=== PATIENT | male | born 1965 | race Two or more races ===

== ENCOUNTER 2018-10-22 20:34 | Emergency (ER) | payer OTHER ==
[~2018-10-22] VITALS: Ht 182.9 cm; Wt 108.9 kg
[2018-10-22] MEDS ORDERED: LIDOCAINE 1% INJ 50 ML MDV IJ ONE ×2 (21:21→21:30)
--- NOTE | 2018-10-22 21:21 | NUR ---
PT BIBSELF COMPLAINING OF MULTIPLE LACERATIONS ON LEFT LOWER EXTREMITY. PT TRIPPED AND FELL ON GLASS TABLE. PT ABLE TO CATCH HIMSELF WHEN HE FELL. DENIES LOC, HEADACHE, DIZZINESS, CHANGE IN VISION. BLEEDING HAS STOPPED. PT UP TO DATE ON TETANUS. WILL CONTINUE TO MONITOR
[2018-10-23 00:20] VITALS: BP 127/84
--- NOTE | 2018-10-23 00:20 | NUR ---
Patient discharged to home in stable condition. Written and verbal after care instructions given. Patient verbalizes understanding of instruction. Pt ambulatory with a steady gait
== END 2018-10-23 00:21 | disposition home or self-care (01) ==
LOC: ER 20:45
DX: S71.112A Laceration without foreign body, left thigh, initial encounter (principal); E11.9 Type 2 diabetes mellitus without complications; Z98.890 Other specified postprocedural states; W01.0XXA Fall on same level from slipping, tripping and stumbling without subsequent striking against object, initial encounter; Y93.89 Activity, other specified; Y92.89 Other specified places as the place of occurrence of the external cause; Y99.8 Other external cause status
CPT/HCPCS: 73552; A4606; A6402; A6403; J3490; Z7610